=== PATIENT | female | born 1945 | race Caucasian/White ===

== ENCOUNTER → 2017-03-22 | Outpatient (CLI) | payer OTHER ==
[~2017-03-22] MED LIST: ABILIFY 2 MG2 M1 PO; ABILIFY 2 MG2 MG PO; ADULT LOW DOSE81 MG PO; ALLOPURINOL 10100 M1 PO; ALLOPURINOL 10100 M3 PO; ASPIRIN EC81 M1 PO; BRILINTA90 MG PO; CIPROFLOXACIN500 M1 PO; CYMBALTA60 MG PO; DILTIAZEM ER240 M1 PO; GLIPIZIDE ER5 MG PO; GLUCOPHAGE XR500 MG PO; GLUCOPHAGE500 MG PO; GLUCOTROL5 MG PO; IMDUR 60 MG TAB60 M1 PO; IMDUR PO; IRON PO; IRON159 MG PO; LASIX 40 MG TAB40 M1 PO; LASIX 40 MG TAB40 M2 PO; LIPITOR10 MG PO; LISINOPRIL20 MG PO; METOCLOPRAMIDE 55 MG PO; MOBIC15 MG PO; NEURONTIN 300300 M1 PO; NITROGLYCERIN0.4 MG PO; NORTRIPTYLINE H25 M3 PO; PANTOPRAZOLE SO40 MG PO; PLAVIX 75 MG TA75 M1 PO; PLAVIX 75 MG TA75 MG PO; PRINIVIL20 MG PO; PROTONIX40 M2 PO; TIAZAC; TIAZAC240 M1 PO; TOPROL XL25 MG PO; ULTRAM 50MG TAB50 MG PO; VITAMIN D1000 UNI1 PO; VITAMIN D10000 UNIT PO; VITAMIN D2000 UNIT PO; ZESTRIL20 MG PO
== END ==
LOC: RAD 01:43
DX: Z12.31 Encounter for screening mammogram for malignant neoplasm of breast (principal)

== ENCOUNTER → 2018-03-28 | Outpatient (CLI) | payer OTHER | LOC: RAD 10:36 | DX: Z12.31 Encounter for screening mammogram for malignant neoplasm of breast (principal) ==